=== PATIENT | female | born 1935 | race Caucasian/White ===

== ENCOUNTER 2016-09-27 07:35 | Day surgery (SDC) | payer MEDICARE, BC ==
[~2016-09-27 07:35] MED LIST: ASPIR 8181 MG PO; BL MAXEPA CAPSU1 CAP PO; FISH OIL 1,2001 EAC7 PO; MULTIVITAMIN1 TAB PO; OMEPRAZOLE20 M4 PO; PERCOCET 5/3251 TAB PO; PROBIOTIC1 EA10 PO; TYLENOL PM EX-1 EAC4 PO; VITAMIN C500 M3 PO; VITAMIN D31000 UNI3 PO; VIVELLE DO TD
[2016-09-29] MEDS ORDERED: NORCO 5-325 TA1 EACH PO (09:57)
== END 2016-09-29 11:00 ==
LOC: SRG 07:35 → SHSB 07:36 → ORW 10:19 → PACU 13:44 → 5WD 14:43
PROC: 0HTT0ZZ Resection of Right Breast, Open Approach (ICD-10-PCS; principal; 2016-09-27)
PROC: 0HTU0ZZ Resection of Left Breast, Open Approach (ICD-10-PCS; 2016-09-27)
PROC: 07B60ZX Excision of Left Axillary Lymphatic, Open Approach, Diagnostic (ICD-10-PCS; 2016-09-27)
PROC: 07B50ZX Excision of Right Axillary Lymphatic, Open Approach, Diagnostic (ICD-10-PCS; 2016-09-27)
PROC: 0HRV0JZ Replacement of Bilateral Breast with Synthetic Substitute, Open Approach (ICD-10-PCS; 2016-09-27)
DX: C50.411 Malignant neoplasm of upper-outer quadrant of right female breast (principal); N64.2 Atrophy of breast; E78.5 Hyperlipidemia, unspecified; M19.90 Unspecified osteoarthritis, unspecified site; K21.9 Gastro-esophageal reflux disease without esophagitis; Z79.899 Other long term (current) drug therapy; Z88.2 Allergy status to sulfonamides; Z88.5 Allergy status to narcotic agent; Z88.8 Allergy status to other drugs, medicaments and biological substances; Z91.048 Other nonmedicinal substance allergy status; Z90.710 Acquired absence of both cervix and uterus; Z98.890 Other specified postprocedural states
CPT/HCPCS: C1713; C1781; C1789; J0690; J1170; J2250; J2795; J3010; J3370; J7030